=== PATIENT | female | born 1990 | race Caucasian/White ===

== ENCOUNTER 2025-04-27 03:05 | Emergency (ER) | payer SELFPAY ==
[~2025-04-27] VITALS: Ht 149.9 cm; Wt 42.0 kg
[2025-04-27] MEDS ORDERED: ONDANSETRON 4 MG TAB ODT SL ONE (03:15)
[2025-04-27] MEDS ORDERED: METHADONE HCL 10 MG TAB PO ONE ×2 (03:15→03:30)
[2025-04-27] MEDS ORDERED: LACTATED RINGER'S 1,000 ML IV ONE (03:15)
[2025-04-27 04:14] VITALS: BP 142/91
== END 2025-04-27 04:15 | disposition home or self-care (01) ==
LOC: ED 03:05
DX: F11.90 Opioid use, unspecified, uncomplicated (principal)
CPT/HCPCS: A9270

== ENCOUNTER 2025-05-21 14:13 | Emergency (ER) | payer OTHER ==
[~2025-05-21] VITALS: Ht 149.9 cm; Wt 46.0 kg
[2025-05-21] MEDS ORDERED: ONDANSETRON 4 MG TAB ODT SL ONE (14:45)
[2025-05-21] MEDS ORDERED: Buprenorphine/Naloxone 8/2mg 1 EACH HOME.PACK SL ONE ×2 (16:30→16:45)
[2025-05-21] MEDS ORDERED: NALOXONE 4 MG NASAL SPRAY #2 HOME.PACK NAS ONE (16:30)
[2025-05-21 16:48] VITALS: BP 155/101
== END 2025-05-21 16:48 | disposition home or self-care (01) ==
LOC: ED 14:13
DX: F11.20 Opioid dependence, uncomplicated (principal)
CPT/HCPCS: 99284; A9270; J3490

== ENCOUNTER 2025-05-25 23:52 | Emergency (ER) | payer OTHER ==
[~2025-05-25] VITALS: Ht 149.9 cm; Wt 47.3 kg
--- OUTSIDE RECORDS SUMMARY | 2025-05-25 23:53 | XMS ---
PreManage Notification: ROGER FORBES Security Registered Health Nurse Events No recent Security Events currently on file CRITERIA MET - [facility] - 2 Visits in 30 Days CARE PROVIDERS There are no care providers on record at this time. Rudy has no Care Guidelines for this patient. Price VISIT COUNT (12 MO.) 3 RADHA Canby H. [address] [place], [place] [address]Faustino TOTAL 5 NOTE: Visits indicate total known visits. ED/[facility] [place] VISIT TRACKING (12 MO.) 05/25/2025 23:52 RADHA John [place] TYPE: Emergency COMPLAINT: - WEAKNESS 05/21/2025 14:13 RADHA John [place] TYPE: Emergency COMPLAINT: - WITHDRAWAL DIAGNOSES: - Nausea with vomiting, unspecified - Opioid dependence, uncomplicated 04/27/2025 03:06 RAD[facility] John [place] TYPE: Emergency COMPLAINT: - WITHDRAWL DIAGNOSES: - Opioid dependence with withdrawal - Opioid dependence, uncomplicated - Opioid use, unspecified, uncomplicated [facility] DIAGNOSES: - Opioid use, unspecified, uncomplicated - Detox Evaluation 10/20/2024 20:17 [facility] Madelyn B[facility]DEN M[facility] TYPE: Emergency DIAGNOSES: - Detox Evaluation INPATIENT VISIT TRACKING (12 MO.) No inpatient visits to display in this time frame [email or web address]
[2025-05-26 01:26] LABS: BLOOD/HGB, URINE NEGATIVE (Negative); KETONE, URINE NEGATIVE (Negative); LEUK ESTERASE, URINE SMALL (negative); NITRITE, URINE NEGATIVE (negative)
[2025-05-26 01:37] LABS: BACTERIA, URINE 1+ /hpf (negative); CRYSTALS, URINE AMORPHOUS PHOSPH 2+ (0-1+); EPITHELIAL CELLS, URINE SQUAMOUS 2+ /lpf (0-1+)
[2025-05-26 01:38] LABS: CASTS, URINE NONE SEEN \\lpf; REFLEX CULTURE, URINE No (No)
[2025-05-26 01:46] VITALS: BP 123/94
[2025-05-26] MEDS ORDERED: MACROBID 100 M100 MG PO (01:49)
[2025-05-26 02:52] LABS: N. GONORRRHOEAE BY PCR NOT DETECTED (NOT DETECT)
== END 2025-05-26 01:49 | disposition other institution, planned readmission (95) ==
LOC: ED 23:52
PROVIDERS: Family Medicine
DX: T19.2XXA Foreign body in vulva and vagina, initial encounter (principal); F22 Delusional disorders; Z53.29 Procedure and treatment not carried out because of patient's decision for other reasons; W44.E0XA Non-magnetic metal object unspecified, entering into or through a natural orifice, initial encounter
CPT/HCPCS: 81001; 84703; 99284

== ENCOUNTER 2025-05-26 13:40 | Emergency (ER) | payer MEDICAID ==
[~2025-05-26] VITALS: Ht 149.9 cm; Wt 46.6 kg
[~2025-05-26 13:40] MED LIST: MACROBID 100 M100 MG PO
[2025-05-26] MEDS ORDERED: IBLOOD GLUCOSE TEST STRIP 1 EA TEST XX ONE (14:30)
[2025-05-26 14:49] LABS: BLOOD/HGB, URINE NEGATIVE (Negative); KETONE, URINE NEGATIVE (Negative); LEUK ESTERASE, URINE NEGATIVE (negative); NITRITE, URINE NEGATIVE (negative)
[2025-05-26 15:07] LABS: BASOPHILS 0.6 % (0.1-1.2); EOSINOPHILS 0.5 % (0.7-5.8); LYMPHOCYTES 20.1 % (19.3-51.7); MCH 29.8 PG (25.6-32.2); MCHC 34.2 g/dL (32.2-35.5); MCV 87.1 fL (79.4-94.8); MONOCYTES 6.5 % (4.7-12.5); NEUTROPHILS 71.7 % (34.0-71.1); RBC 4.57 M/uL (3.93-5.22)
[2025-05-26 15:14] LABS: AMPHETAMINES, URINE POSITIVE (NEGATIVE); BARBITURATES, URINE NEGATIVE (NEGATIVE); BENZODIAZEPINE, URINE NEGATIVE (NEGATIVE); CANNABINOID, URINE POSITIVE (NEGATIVE); COCAINE, URINE NEGATIVE (NEGATIVE); ECSTASY, URINE NEGATIVE (NEGATIVE); FENTANYL, URINE POSITIVE (NEGATIVE); METHADONE, URINE NEGATIVE (NEGATIVE); OPIATES, URINE NEGATIVE (NEGATIVE); OXYCODONE, URINE NEGATIVE (NEGATIVE); PHENCYCLIDINE, URINE NEGATIVE (NEGATIVE)
[2025-05-26 15:32] LABS: ALCOHOL, MEDICAL <3 ng/dL (<3); ALT (SGPT) 12 U/L (14-59); AST (SGOT) 14 U/L (15-37); GLOMERULAR FILTRATION RATE,EST 120 mL/min (>60); PROTEIN, TOTAL 6.9 g/dL (6.4-8.2); TSH, 3RD GENERATION 0.273 uIU/mL (0.358-3.740); UREA NITROGEN 15 mg/dL (7-18)
[2025-05-26] MEDS ORDERED: ONDANSETRON 4 MG TAB ODT SL ONE ×2 (17:00→17:45)
[2025-05-26] MEDS ORDERED: BICTEGRAV/EMTRICIT/TENOFOV 1 EACH HOME.PACK PO ONE (17:30)
[2025-05-26] MEDS ORDERED: OLANZapine 10 MG VIAL IM ONE (17:30)
--- OUTSIDE RECORDS SUMMARY | 2025-05-26 18:03 | XMS ---
PreManage Notification: ROGER FORBES Security Copy Preparer Events No recent Security Events currently on file CRITERIA MET - [facility] - 2 Visits in 30 Days CARE PROVIDERS There are no care providers on record at this time. Rudy has no Care Guidelines for this patient. Price VISIT COUNT (12 MO.) [address] [place], [place] [address]Faustino TOTAL 6 NOTE: Visits indicate total known visits. ED/C VISIT TRACKING (12 MO.) [facility] COMPLAINT: - MEDICAL CLEARANCE 05/25/2025 23:52 RADHA John [place] TYPE: Emergency COMPLAINT: - WEAKNESS 05/21/2025 14:13 RADHA John [place] TYPE: Emergency COMPLAINT: - WITHDRAWAL DIAGNOSES: - Nausea with vomiting, unspecified - Opioid dependence, uncomplicated 04/27/2025 03:06 RADHA John [place] TYPE: Emergency COMPLAINT: - WITHDRAWL DIAGNOSES: - Opioid dependence with withdrawal - Opioid dependence, uncomplicated - Opioid use, unspecified, uncomplicated [facility] DIAGNOSES: - Opioid use, unspecified, uncomplicated - Detox Evaluation 10/20/2024 20:17 [facility] Madelyn BOWDEN M[facility] TYPE: Emergency DIAGNOSES: - Detox Evaluation INPATIENT VISIT TRACKING (12 MO.) No inpatient visits to display in this time frame [email or web address]
[2025-05-27 11:55] VITALS: BP 116/76
[2025-05-28 08:46] LABS: HEPATITIS BE ANTIGEN Negative (Negative)
[2025-05-28 09:07] LABS: HEPATITIS BE ANTIBODY Negative (Negative)
== END 2025-05-27 11:55 | disposition home or self-care (01) ==
LOC: ED 13:40
PROVIDERS: Emergency Medicine
DX: F15.159 Other stimulant abuse with stimulant-induced psychotic disorder, unspecified (principal); F11.159 Opioid abuse with opioid-induced psychotic disorder, unspecified
CPT/HCPCS: 36415; 80053; 80307; 81003; 83735; 84443; 84460; 84484; 84703; 85025; 86707; 87350; 99285; A9270; G0480